=== PATIENT | female | born 1965 | race Caucasian/White ===

== ENCOUNTER → 2023-10-13 19:36 | Outpatient (REF) | payer BC, SELFPAY | LOC: WDC 19:36 | PROVIDERS: ATTENDING PHYSICIAN Family Medicine | DX: Z12.31 Encounter for screening mammogram for malignant neoplasm of breast (principal) | CPT/HCPCS: 77063; 77067 ==

== ENCOUNTER 2024-08-08 22:44 | Emergency (ER) | payer BC, SELFPAY ==
[2024-08-08 22:48] VITALS: BP 179/108
[2024-08-08 23:05] LABS: % Basophils 1.1 % (0-2); % Eosinophils 6.8 % (0-6); % Immature Granulocytes 0.1 % (0-0.5); % Lymphocytes 35.5 % (20.5-51.1); % Monocytes 9.4 % (1.7-9.3); % Neutrophils 47.1 % (42.2-75.2); Absolute Basophils 0.1 10^3/uL (0-0.2); Absolute Eosinophils 0.5 10^3/uL (0-0.7); Absolute Lymphocytes 2.6 10^3/uL (1.2-3.4); Absolute Monocytes 0.7 10^3/uL (0.1-0.6); Absolute Neutrophils 3.4 10^3/uL (1.4-6.5); Hemoglobin 13.8 g/dL (12.0-16.0); Mean Corp Hgb Conc. 33.7 g/dL (33.0-37.0); Mean Corpuscular Hgb 30.6 pg (27.0-31.0); Mean Corpuscular Volume 90.9 fL (81.0-99.0); Mean Platelet Volume 9.1 fL (7.4-10.4); Nucleated Red Blood Cells % 0 %; Platelet Count 326 10^3/uL (130-400); Red Blood Cell Count 4.51 10^6/uL (4.20-5.40); Red Cell Dist. Width 13.2 % (11.5-14.5); White Blood Cell Count 7.2 10^3/uL (4.8-10.8)
[2024-08-08 23:21] LABS: ALT (SGPT) 28 U/L (0-35); AST (SGOT) 27 U/L (14-36); Albumin 4.4 g/dl (3.5-5.0); Alkaline Phosphatase 78 U/L (38-126); Blood Urea Nitrogen 24 mg/dl (7-17); Calcium 9.8 mg/dl (8.4-10.2); Carbon Dioxide 27 mmol/L (22-30); Chloride 101 mmol/L (98-107); Glucose 102 mg/dl (70-99); Potassium 4.3 mmol/L (3.5-5.1); Sodium 135 mmol/L (135-145); Total Bilirubin 0.6 mg/dl (0.2-1.3); Total Protein 7.5 g/dl (6.3-8.2); eGFR > 60.00
[2024-08-08 23:44] VITALS: BMI 31.2
--- NOTE | 2024-08-09 01:07 | ED.GENMED ---
History of Present Illness
General
Chief Complaint: Blood Pressure Problem
Source: patient
Exam Limitations: none
Time Seen by Provider: 08/08/24 23:53
History of Present Illness
History of Present Illness:
Patient here primarily of concerns of her blood pressure. She has had chronic hypertension managed with a YUE inhibitor for years. The last 2 to 3 weeks it was noted that her blood pressure had risen significantly on evaluation for elective
surgery. Patient's lisinopril was increased to 20 mg. A diuretic was added. She is currently on . She has had mild ongoing headaches for weeks. These are mostly right sided retrobulbar. These are mild in nature. This evening her blood
pressure initially had a diastolic of 99. Then on 2 rechecks went up to about 110. That was her primary reason for presentation
Past History
Past History
ED Past Medical History: HTN
ED Past Surgical History: Other (Breast augmentation)
Social History
Living: with family
Review of Systems
Review of Systems
All Other Systems: Not applicable
Constitutional: Denies fever or chills
Respiratory: Denies trouble breathing
Cardiac: Denies chest pain
Neurological: Denies dizzy or weakness
Phy Exam
Physical Exam
Physical Exam:
GENERAL: Alert and oriented in no apparent distress
EYE: Orbits normal.
NECK: Supple
CARDIAC: Regular rate and rhythm without any obvious murmurs.
LUNGS: Clear breath sounds,normal
ABDOMEN: Soft, without focal tenderness or distention
NEUROLOGICAL: Alert and oriented , grossly non-focal
SKIN: Warm and dry, no rash or lesion, no discoloration, skin intact.
MUSCULOSKELETAL: No edema,no deformity.Good color
PSYCH: Normal and appropriate interaction.
Course
Orders/Labs/Results
Orders:
Orders
08/08/24 23:00
Complete Blood Count/With Diff Urgent
Comprehensive Metabolic Panel Urgent
08/09/24 00:05
Electrocardiogram (*1) Stat
Reason for Study: Other
Other Reason for Exam: Headache
CT Head W/o Iv Contrast Urgent
Comment:
Reason For Exam: Headache/hypertension
Cardiac Monitoring- Treatment ONCE
EKG- Treatment ONCE
Abnormal Lab Results
08/08/24
23:00
Absolute Monos (auto) 0.7 H 10^3/uL
(0.1-0.6)
Monocytes % 9.4 H %
(1.7-9.3)
Eosinophils % 6.8 H %
(0-6)
BUN 24 H mg/dl
(7-17)
Glucose 102 H mg/dl
(70-99)
08/08/24 23:00
08/08/24 23:00
Vital Signs
Initial and Last Documented VS:
Initial Vital Signs
Temp Pulse Resp BP Pulse Ox
97.7 F 74 20 179/108 99
08/08/24 22:48 08/08/24 22:48 08/08/24 22:48 08/08/24 22:48 08/08/24 22:48
Last Documented Vital Signs
Temp Pulse Resp BP Pulse Ox
97.7 F 74 20 179/108 99
08/08/24 22:48 08/08/24 22:48 08/08/24 22:48 08/08/24 22:48 08/08/24 22:48
MDM/Problems Addressed
Differential Diagnosis Includes:
Minimal headache for weeks. Benign neurologic exam. CT done for completeness. CT unremarkable. Blood pressure elevated. Will monitor. No need for emergent antihypertensive management.
*Radiology
Radiology exam reviewed: radiology read reviewed (Negative head CT)
*Pulse Oximetry
Patient hypoxic: no
*EKG
Interpreted by ED Provider?: Yes
Interpretation: normal
Comparison EKG: no comparison EKG present
Heart Rate: 73
Rate: normal
Rhythm: sinus
[place]: normal axis
Interval: normal interval
QRS Pattern: normal QRS
Ischemia: no ischemia
*Critical Care Note
Total Time (30-74mins, 75-104mins- exclusive of procedures): Not Applicable
Update Note
Update Note:
Blood pressure 141/76. Resting comfortably. Reassurance and follow-up.
ED Attending Note
-
Portions of this chart may have been created with voice recognition software.� Occasional wrong word or��sound alike� substitutions may have occurred due to the inherent limitations of voice recognition software.
Discharge Plan
Departure
Patient Disposition: Home (Routine Discharge)
Date of Disposition: 08/09/24
Time of Disposition: 01:34
Patient with high blood pressure during this ER visit?: Yes
Discharge Problem:
Headache/hypertension
Instructions: High Blood Pressure (DC), Headache in adults - ED discharge instructions, BLOOD PRESSURE
Prescriptions:
No Action
lisinopril-hydrochlorothiazide
1 tab PO DAILY
Rx Instructions:
Referrals:
Leyda Lee MD [Family Provider] - Follow up in 2-3 days
Interventions
Interventions:
*Risk Screen - Suicide Last Done: 08/08/24 22:48
*General Assessment Last Done: 08/08/24 22:48
*Neglect/Abuse Screening Last Done: 08/08/24 22:48
*ED- Fall Risk Assessment Last Done: 08/08/24 23:45
*ED COVID-19 Vaccine History Last Done: 08/08/24 23:45
ED- Cardiac Assessment Last Done: 08/08/24 23:50
ED- Neurological Assessment Last Done: 08/08/24 23:50
ED- Pulmonary Assessment Last Done: 08/08/24 23:50
Discharge Date and Time
Print Language: [id number]
[2024-08-09 01:33] VITALS: BP 141/76
== END 2024-08-09 02:00 | disposition home or self-care (01) ==
LOC: EMR 22:44
PROVIDERS: EMERGENCY PHYSICIAN Emergency Medicine; FAMILY PHYSICIAN Family Medicine
DX: R51.9 Headache, unspecified (principal); I10 Essential (primary) hypertension; Z79.899 Other long term (current) drug therapy
CPT/HCPCS: 99284; 70450; 80053; 85025; 93005

== ENCOUNTER 2025-02-03 06:19 | Day surgery (SDC) | payer BC, SELFPAY | END 2025-02-03 11:45 | disposition home or self-care (01) | LOC: GI 06:19 | PROVIDERS: ATTENDING PHYSICIAN Internal Medicine Gastroenterology | DX: Z12.11 Encounter for screening for malignant neoplasm of colon (principal); K64.9 Unspecified hemorrhoids | CPT/HCPCS: G0105 ==

== ENCOUNTER → 2025-03-07 13:05 | Outpatient (REF) | payer BC, SELFPAY | LOC: WDC 13:05 | PROVIDERS: ATTENDING PHYSICIAN Family Medicine | DX: Z12.31 Encounter for screening mammogram for malignant neoplasm of breast (principal) | CPT/HCPCS: 77063; 77067 ==